=== PATIENT | male | born 1940 | race American Indian/Alaskan Native ===

== ENCOUNTER 2016-10-17 09:55 | Day surgery (SDC) | payer MEDICARE ==
[2016-10-17] MEDS ORDERED: WATER FOR IRRIG STERILE IR ONE (10:57)
[2016-10-17] MEDS ORDERED: NACL 0.9% 1000 ML 1,000 ML IV SCH (11:00)
--- NOTE | 2016-10-17 11:35 | Anesthesia Consultation ---
Anesthesia Consult and Med Hx Date of service: 10/17/16 - Airway Anesthetic Teeth Evaluation: Good, Crowns ROM Head & Neck: Adequate Mental/Hyoid Distance: Adequate Mallampati Class: Class II Intubation Access Assessment: Probably Good - Pulmonary Exam CTA: Yes - Cardiac Exam Cardiac Exam: RRR - Pre-Operative Health Status ASA Pre-Surgery Classification: ASA3 Proposed Anesthetic Plan: MAC - Cardiovascular System Hx Hypertension: Yes (no meds) - Endocrine Hx Non-Insulin Dependent Diabetes: Yes (Metformin)
[2016-10-17] MEDS ORDERED: DIPRIVAN 10 MG/ML IV ONE ×6 (11:37→12:25)
--- NOTE | 2016-10-17 11:37 | Anesthesia Day of Surgery ---
Anesthesia Day of Surgery - Day of Surgery Patient Examined: Yes Patient H&P Reviewed: Yes Patient is NPO: Yes
[2016-10-17] MEDS ORDERED: XYLOCAINE MPF 2% ONE (11:39)
[2016-10-17] MEDS ORDERED: ADRENALIN ONE (11:48)
--- NOTE | 2016-10-17 12:49 | Short Stay Summary ---
Short Stay Documentation Date of service: 10/17/16 Narrative H&P: The patient presents for first screening colonoscopy. No FH of colon cancer or polyps - History Past Medical History: diabetes, hypertension Past Surgical History: No surgical history Social history: no significant social history, no smoking, no alcohol abuse - Allergies and Medications Current Medications: Allergies No Known Allergies Allergy (Verified 10/17/16 11:17) Home Medications Medication Instructions Recorded Confirmed Last Taken Type Calcium 1 tab PO DAILY 10/16/16 10/17/16 10/15/16 History Centrum Silver Tablet 1 tab PO DAILY 10/16/16 10/17/16 10/15/16 History Cod Liver Oil 1 mg PO DAILY 10/16/16 10/17/16 10/15/16 History metFORMIN 1,000 mg PO DAILY 10/16/16 10/17/16 10/15/16 History Active Medications Sodium Chloride (Nacl 0.9% 1000 Ml) 1,000 mls @ 50 mls/hr IV DIRECT CHANO Last Admin: 10/17/16 11:01 Dose: 50 mls/hr - Physical exam General appearance: no acute distress, well-nourished Integumentary: no rash, no growths, no abnormal pigmentation HEENT: Atraumatic, PERRLA, EOMI, Mucous membr. moist/pink Lungs: Clear to auscultation, Normal air movement Breasts: deferred Heart: Regular rate, Normal S1, Normal S2, No murmurs, no Gallops Gastrointestinal: normoactive bowel sounds, no tenderness, no distended, no masses, no guarding, no organomegaly, no obese Male Genitourinary: deferred Rectal Exam: normal exam-external/orifice, normal rectal tone, no mass Extremities: no ischemia, pulses intact, pulses symmetrical, No edema, normal temperature, normal color, Full ROM Neurological: Normal gait, Normal speech, Strength at 5/5 X4 ext, Normal tone, Sensation intact, Cranial nerves 3-12 NL - Brief post op/procedure progress note Date of procedure: 10/17/16 Findings: report dictated Estimated blood loss: none Pathology: list (Large proximal ascending colon polyp, resected piecemeal) Specimen disposition: to lab Condition: stable - Disposition Condition at discharge: Good Disposition: DISCHARGED TO HOME OR SELFCARE - Discharge Diagnoses (1) Colon polyp Status: Acute Short Stay Discharge Plan Activity: other (No driving for 24 hours. No NSAIDS for 10 days. Office appointment in 1-2 weeks) Weight Bearing Status: Full Weight Bearing Diet: diabetic
--- NOTE | 2016-10-17 12:55 | Operative Report ---
Operative Report Operative Report: Date of procedure: 10/17/2016 Preprocedure diagnosis: Colon cancer screening. Average risk. No prior studies.. Post procedure diagnosis: 4 cm lobulated polyp in the proximal ascending colon. Procedure: Colonoscopy to the cecum with piecemeal resection of the polyp, image control measures with pretreatment with epinephrine and Endo Clip placements Endoscopist: Dr. Sutherland Anesthesia: Monitored anesthesia care per anesthesia department Estimated blood loss: 0 Medications: Monitored anesthesia care. See separate report by anesthesia for details. After careful discussion of the nature and purpose of the procedure as well as details of the technique risks benefits and alternatives the patient gave consent. Please see recent history and physical from the office. The patient was placed in the left lateral decubitus position and medicated per anesthesia. A rectal exam was performed sphincter tone was normal there were no masses palpable. The Microtune 570 scope was passed transanally and advanced under continuous direct vision without difficulty to the cecum. The colon was well prepared. The cecum was normal. There was a large, 4 cm polyp on a thick short stalk in the proximal ascending colon near the ileocecal valve but clearly separate. The polyp appeared endoscopically resectable. Epinephrine, 3 mL 1-10,000 solution was injected and the polyp base and the polyp followed by piecemeal resection of this large lesion. There was some bleeding from a small vessel in the base although it was nonpulsatile. It was elected to place 3 clips on the base of the polyp to approximate the edges of the polypectomy site and to eradicate any further bleeding from the vessel. The polyp site appeared clean after piecemeal resection. No bleeding was encountered on extended observation. Multiple polyp fragments are removed by successive passes of the scope using the [place] basket. The ascending colon was otherwise normal on forward and retroflexed views. The transverse colon, descending colon, and sigmoid colon were normal except for a few sigmoid diverticula. The rectum was normal on forward and retroflexed views. The procedure was well-tolerated overall and the patient was observed in recovery. Conclusions: 4 cm polyp on a thick short stalk in the proximal ascending colon. Status post piecemeal resection and hemorrhage control measures with endo- clipping and epinephrine injection. Plan: Office appointment in 1-2 weeks to discuss her care. If there is invasive malignancy the patient will need a right hemicolectomy. Early follow- up colonoscopy at 6 months if there is no invasive neoplasm in light of piecemeal resection. Signed electronically: Nilo Sutherland M.D.
[2016-10-17 13:12] VITALS: BP 135/65
--- NOTE | 2016-10-17 18:10 | Post Anesthesia Evaluation ---
- Post Anesthesia Evaluation Patient Participated: Yes Airway Patent: Yes Stable Respiratory Function: Yes Nausea/Vomiting: No Temp > 96.8F: Yes Pain Manageable: Yes Adequeate Hydration: Yes Anesthesia Complications: No Block Receding Appropriately: Not Applicable Patient on Ventilator: No
== END 2016-10-17 09:56 | disposition home or self-care (01) ==
LOC: GIO 09:55
PROVIDERS: ATTEND Internal Medicine Gastroenterology
DX: Z12.11 Encounter for screening for malignant neoplasm of colon (principal); D12.2 Benign neoplasm of ascending colon; K57.30 Diverticulosis of large intestine without perforation or abscess without bleeding; I10 Essential (primary) hypertension; E11.9 Type 2 diabetes mellitus without complications; Z79.84 Long term (current) use of oral hypoglycemic drugs
CPT/HCPCS: 45380; 45381; 82962; 88305; J0171; J2704; J7030

== ENCOUNTER 2021-07-18 06:21 | Day surgery (SDC) | payer MEDICARE ==
[2021-07-18] MEDS ORDERED: SODIUM CHLORIDE 0.9% 500 ML 500 ML IV SCH (07:00)
[2021-07-18] MEDS ORDERED: ASPIRIN EC 325 MG TAB PO SCH (07:00)
[2021-07-18] MEDS ORDERED: SODIUM CHLORIDE 0.9% 1000 ML 1,000 ML IV SCH (07:00)
[2021-07-18 07:13] LABS: Basophils # (Auto) 0.1 K/mm3 (0.0-0.1); Basophils % (Auto) 1.5 % (0.0-1.8); Eosinophils # (Auto) 0.4 K/mm3 (0.0-0.4); Eosinophils % (Auto) 3.7 % (0.0-4.3); Hematocrit 42.8 % (35.5-45.6); Hemoglobin 14.5 gm/dl (11.8-15.2); Lymphocytes # (Auto) 2.7 K/mm3 (1.2-5.4); Lymphocytes % (Auto) 26.7 % (13.4-35.0); Mean Corpuscular HGB Conc 34 % (32-34); Mean Corpuscular Volume 81 fl (84-94); Monocytes # (Auto) 0.7 K/mm3 (0.0-0.8); Monocytes % (Auto) 6.9 % (0.0-7.3); Platelet Count 191 K/mm3 (140-440); Red Blood Count 5.29 M/mm3 (3.65-5.03); Red Cell Distribution Width 14.1 % (13.2-15.2)
[2021-07-18 07:29] LABS: INR 0.95 (0.87-1.13)
[2021-07-18 07:51] LABS: Calcium 9.1 mg/dL (8.4-10.2)
--- NOTE | 2021-07-18 10:51 | Electrocardiograph Report ---
[facility] Test Date: 2021-07-18 Test Time: 08:59:08 Pat Name: KELVIN LACY Department: Room: Gender: M Hand Mixer: FIORELLA : 1940 Requested By: KENDRA JIANG Order Number: [id number] Reading MD: Reji Lacy Measurements Intervals Biggers Rate: 64 P: 61 OR: 169 QRS: -33 QRSD: 93 T: -64 QT: 499 QTc: 517 Interpretive Statements Sinus rhythm Ventricular trigeminy INFERIOLATERAL infarct, age indeterminate Prolonged QT interval No previous ECG available for comparison Electronically Signed On 07-18-2021 10:50:41 EDT by Reji Lacy
[2021-07-18] MEDS ORDERED: HEPARIN 10,000 UNITS/10 ML VIAL ONE (11:39)
[2021-07-18] MEDS ORDERED: fentaNYL 100 MCG/2 ML INJ ONE (11:39)
[2021-07-18] MEDS ORDERED: HEPARIN/NS 5000 UNIT/500ML 1,000 ML IR ONE (11:39)
[2021-07-18] MEDS ORDERED: MIDAZOLAM 2 MG/2 ML INJ ONE (11:39)
[2021-07-18] MEDS ORDERED: LIDOCAINE (2%) 20 MG/1 ML VIAL 20 ML MDV INFILTRATI ONE ×2 (11:40→12:04)
[2021-07-18] MEDS ORDERED: fentaNYL 100 MCG/2 ML INJ IV ONE ×2 (11:58→12:05)
[2021-07-18] MEDS ORDERED: MIDAZOLAM 2 MG/2 ML INJ IV ONE (11:58)
--- NOTE | 2021-07-18 13:21 | Cardiac Catherization Report ---
DATE OF SERVICE: 07/18/2021 HISTORY: The patient is a 81-year-old gentleman with multiple medical problems who recently had a syncopal episode and his EKG was consistent with a previous myocardial infarction, so coronary angiography was recommended. PROCEDURE: Left heart catheterization, ventriculography, and coronary angiography via the right femoral artery using 5-Urdu Jason catheters and a pigtail catheter. COMPLICATIONS: None. ESTIMATED BLOOD LOSS: 10-20 mL. PREPROCEDURE DIAGNOSIS: Suspected coronary artery disease. POSTPROCEDURE DIAGNOSES: Single vessel coronary artery disease with mild to moderate left ventricular dysfunction. SEDATION: Intravenous Versed and fentanyl. TISSUE SAMPLE: None. HEMODYNAMICS: Central aortic pressure 156/83. Left ventricular pressure 156/37. ANGIOGRAPHIC RESULTS: 1. Left ventricle: The ventriculogram reveals mild dilatation of the left ventricle with hypokinesia of the inferior and inferoapical wall. The inferobasal segment is somewhat dilated and dyskinetic. The apex is minimally hypokinetic. An estimation of the ejection fraction is 30%-40%. 2. Right coronary artery: This is a dominant vessel and it is totally obstructed in the mid portion. The distal vessel including the posterolateral branch and PDA branch can be seen via collateral blood flow from the left coronary artery. This portion of the vessel appears to be diffusely irregular, no severe lesions can be appreciated. 3. Left coronary artery: The left main is short and free of disease. The circumflex is diffusely irregular and the obtuse marginal branch contains a 50% stenosis. The LAD is a large caliber vessel with an early distal 50% lesion. The first septal skin care instructor appears to contain a proximal 70% lesion. FINAL IMPRESSION: 1. Coronary artery disease with total occlusion of the right coronary artery, collateral blood flow from the left coronary artery, and evidence of previous inferior wall myocardial infarction. The ejection fraction is 30%-40%. 2. Ischemic cardiomyopathy. 3. Recent syncopal episode: Rule out arrhythmias. PLAN: Beta arianne and aspirin therapy. We will recommend statin therapy. We will recommend the patient see Electrophysiology tomorrow for further evaluation. The results of the procedure and the medical therapy was discussed with the patient, the patient's , and the patient's daughter who is a physician. PROCEDURE START TIME: 11:58. PROCEDURE END TIME: 12:20. TOTAL SEDATION TIME: 22 minutes. TID: [id number] RECEIPT: [id number] MIGUEL/MERRICK cc: Urban Griffin MD
--- NOTE | 2021-07-18 14:49 | Discharge Summary ---
Short Stay Discharge Plan Activity: advance as tolerated Weight Bearing Status: Partial Weight Bearing Diet: low fat, low cholesterol, low salt, diabetic Wound: open to air, keep clean and dry Additional Instructions: I SAW THIS PT & AGREE WITH THE Dx & Tx PLAN. Follow up with: REYES LOMELI MD [Staff Physician] - 7 Days KENDRA JIANG MD [Staff Physician] - 7 Days Forms: CardCat PCI D/C Instructions
[2021-07-18] MEDS ORDERED: traMADol 50 MG TAB PO PRN (15:00)
[2021-07-18] MEDS ORDERED: HYDROcodone/ACETAMINOPHEN 5-325 MG TAB PO PRN (15:00)
[2021-07-18 15:02] VITALS: BP 136/71
== END 2021-07-18 16:00 | disposition home or self-care (01) ==
LOC: CATHLABREC 06:21
PROVIDERS: ATTEND Internal Medicine Cardiovascular Disease
DX: R94.39 Abnormal result of other cardiovascular function study (principal); I25.10 Atherosclerotic heart disease of native coronary artery without angina pectoris; I25.5 Ischemic cardiomyopathy; I12.9 Hypertensive chronic kidney disease with stage 1 through stage 4 chronic kidney disease, or unspecified chronic kidney disease; N18.30 Chronic kidney disease, stage 3 unspecified; M19.90 Unspecified osteoarthritis, unspecified site; Z79.82 Long term (current) use of aspirin; Z79.899 Other long term (current) drug therapy; Z98.890 Other specified postprocedural states
CPT/HCPCS: 36415; 80048; 85025; 85610; 85730; 93005; 93458; 99156; J1644; J2250; J3010; J7030; Q9967